=== PATIENT | female | born 1965 | race Caucasian/White ===

== ENCOUNTER → 2017-02-07 | Outpatient (CLI) | payer OTHER ==
--- NOTE | 2017-02-07 15:48 | DIAGNOSTIC IMAGING REPORT ---
L FOOT MIN 3 VIEWS ROUTINE HISTORY: 51 years-old Female M79.672 Acute foot pain, leftleft acute left foot pain without reported trauma COMPARISON: None available TECHNIQUE: 3 views of the left foot FINDINGS: Mild degenerative changes of the first MTP joint. Bipartite medial hallux sesamoid. No acute fracture or subluxation identified. Calcifications projecting over the distal pretibial soft tissues may reflect vascular calcifications. Mild dorsal spurring of the midfoot. Small plantar calcaneal enthesophyte. IMPRESSION: Mild degenerative changes without acute fracture or dislocation. The above report was generated using voice recognition software. It may contain grammatical, syntax or spelling errors. Electronically signed by: Reginaldo Mosher M.D. 02/07/2017 3:47 PM Dictated Date/Time: 02/07/2017 3:45 PM
== END | disposition home or self-care (01) ==
LOC: C.RAD1850 15:34
PROVIDERS: ATTEND Physician Assistant
DX: M79.672 Pain in left foot (principal)